=== PATIENT | female | born 1955 | race Caucasian/White ===

== ENCOUNTER → 2018-08-20 | Outpatient (CLI) | payer OTHER ==
[~2018-08-20] MED LIST: NORCO 5-325 TA1 EACH PO; PAXIL10 MG PO; SYNTHROID
== END ==
LOC: ULTRA 13:14
DX: R10.11 Right upper quadrant pain (principal)

== ENCOUNTER → 2018-09-02 | Outpatient (CLI) | payer OTHER | LOC: NUC 08:57 | DX: R10.11 Right upper quadrant pain (principal) ==